=== PATIENT | female | born 1990 | race African-American/Black ===

== ENCOUNTER 2020-04-16 19:07 | Emergency (ER) | payer OTHER ==
[2020-04-16] MEDS ORDERED: cefTRIAXone\\ROCEPHIN 250 MG VIAL ONE (20:07)
[2020-04-16] MEDS ORDERED: Azithromycin 250 MG TAB ONE (20:07)
[2020-04-16] MEDS ORDERED: Lidocaine 1% PF 5 ML VIAL ONE (20:07)
[2020-04-16 20:13] LABS: Bacteria/HPF 3+ HPF (None Seen); Bilirubin Negative (Negative); Blood, Urine 2+ (Negative); Clarity Turbid (Clear); Glucose, Urine (Dipstick) Normal (Negative); Ketone, Urine Negative (Negative); Leukocyte 500 Leu/uL (Negative); Nitrite Negative (Negative); Protein, Urine (Dipstick) 20 mg/dL (Neg-Trace); RBC/HPF 0-3 HPF (0-3); Specific Gravity, Urine 1.028 (1.002-1.036); Urobilinogen Normal mg/dL (Less than 2); WBC/HPF Greater than 50 HPF (0-3)
[2020-04-16 20:16] LABS: Pregnancy Test - Urine (BHCG) Negative (Negative); Pregu Control Background? CLEAR/WHITE (CLR/WHITE); Pregu Control Bar Appear? YES (CONTROL BAR); Specific Gravity 1.028 (1.002-1.036)
[2020-04-17 22:43] LABS: Chlamydia by PCR Not Detected (NotDetected); GC by PCR Not Detected (NotDetected)
== END 2020-04-16 21:00 | disposition home or self-care (01) ==
LOC: ERS 19:07
DX: N39.0 Urinary tract infection, site not specified (principal); Z20.2 Contact with and (suspected) exposure to infections with a predominantly sexual mode of transmission
CPT/HCPCS: 81003; 81015; 81025; 87077; 87086; 87186; 87480; 87491; 87510; 87591; 87660; 96372; 99283; J0696